=== PATIENT | male | born 1955 | race Caucasian/White ===

== ENCOUNTER 2017-07-26 08:39 | Outpatient (CLI) | payer OTHER ==
--- NOTE | 2017-07-26 10:58 | MRI ---
MRI LUMBAR SPINE WITH AND WITHOUT CONTRAST: Technique: Multiplanar, multisequential imaging of the lumbar spine obtained. Post contrast images ob tained after administration of 20 cc of MultiHance IV. History: Lumbar radiculopathy. Comparison: MRI lumbar spine 09-02-10. FINDINGS: Lumbar vertebrae maintain height and alignment. Degenerative disc changes are seen at all levels. Deg enerative disc and endplate changes are most pronounced at L2-3 and L3-4. Loss of disc height at both of these levels. Similar findings were noted on the prior study. T12-L1: No disc bulge or protrusion. L1-2: Mild disc bulge. Mild posterior facet hypertrophy. Mild central canal stenosis. L2-3: Mild disc bulge. Mild facet arthrosis. Mild central canal stenosis. Asymmetric disc bulge later ally to the left may contact the lateral left L2 nerve root. L3-4: There is a broad based disc protrusion which has progressed when compared to the prior exam of 09-02-10. This flattens the thecal sac and is associated with posterior hypertrophic change. There is e vidence of posterior laminectomy at this level. Facet hypertrophy is prominent. Mild to moderate cent ral canal stenosis. There is bilateral foraminal encroachment due to the broad based disc. L4-5: Minimal disc bulge. Mild facet arthrosis and hypertrophy. Mild central canal stenosis. Asymmetr ic disc bulge/osteophyte projects to the left laterally. L5-S1: Small central disc protrusion and dense anterior thecal sac. Mild facet arthrosis. No signific ant central canal stenosis. IMPRESSION: 1. Broad based disc bulge/protrusion at L3-4. Posterior laminectomy changes. Facet hypertrophy. Findi ngs at this level result in mild to moderate central canal stenosis and bilateral foraminal encroachm ent. POS: [facility]
== END 2017-07-26 08:40 | disposition home or self-care (01) ==
LOC: TBSIIMAG 08:39
PROVIDERS: ATTEND Neurological Surgery
DX: M51.16 Intervertebral disc disorders with radiculopathy, lumbar region (principal)
CPT/HCPCS: 72158

== ENCOUNTER 2019-11-22 14:44 | Observation (INO) | payer OTHER, SELFPAY ==
[2019-11-22 17:16] VITALS: BMI 37.2
[2019-11-22] MEDS ORDERED: TRULICITY SC SCH (17:30)
[2019-11-22] MEDS ORDERED: HumaLOG 300 UNITS/3 ML VIAL SC PRN ×2 (18:37)
[2019-11-22] MEDS ORDERED: Dextrose 5% in Water 1,000 ML IV PRN (18:37)
[2019-11-22] MEDS ORDERED: Dextrose 50% Abboject 50 ML SYRINGE IVP PRN (18:37)
[2019-11-22] MEDS: Lisinopril 20 MG TAB PO SCH (20:48)
[2019-11-23] MEDS ORDERED: Levothyroxine 175 MCG TAB PO SCH (06:00)
[2019-11-23] MEDS: Lisinopril 20 MG TAB PO SCH (07:46)
[2019-11-23 08:12] VITALS: BP 148/65; TEMP 98.3
[2019-11-23] MEDS ORDERED: Ezetimibe 10 MG TAB PO SCH (09:00)
[2019-11-23] MEDS ORDERED: Tamsulosin HCl 0.4 MG CAP PO SCH (09:00)
[2019-11-23] MEDS ORDERED: Amlodipine 10 MG TAB PO SCH (09:00)
[2019-11-23] MEDS ORDERED: Insulin Glargine 68 UNITS in Pre-Filled Syringe 1 EACH SC SCH (09:00)
[2019-11-23] MEDS ORDERED: Potassium Chloride 10 MEQ TAB PO SCH (09:00)
[2019-11-23] MEDS ORDERED: Furosemide 40 MG TAB PO SCH (09:00)
[2019-11-23] MEDS ORDERED: Aspirin 81 mg Enteric Coated Tablet PO SCH (09:00)
[2019-11-23] MEDS ORDERED: Lisinopril 10 MG TAB PO SCH (09:00)
[2019-11-23] MEDS ORDERED: Cyanocobalamin (Vitamin B-12) 1,000 MCG TAB PO SCH (09:00)
--- NOTE | 2019-11-25 10:51 | HP ---
REASON FOR ADMISSION: Severe coronary artery disease found on cardiac catheterization. HISTORY OF PRESENT ILLNESS: Mr. Andrea is a very pleasant 64-year-old gentleman with hypertension and diabetes. The patient was found to have exertional angina as an outpatient. Stress test revealed a yxckvlmj-kc-uvxrn fixed defect of inferior wall with iza-infarction ischemia. He continued to have chest pain despite medicines and underwent cardiac catheterization today showing severe 3-vessel coronary artery disease. MEDICATIONS: At home; 1. Enalapril 20 mg a day. 2. Potassium 10 mEq a day. 3. Aspirin 81 mg a day. 4. Zetia 10 mg a day. 5. Trulicity. 6. Tamsulosin. 7. Amlodipine. PAST MEDICAL HISTORY: 1. Hyperlipidemia. 2. Statin intolerance. 3. Sleep apnea. PAST SURGICAL HISTORY: Carpal tunnel surgery. FAMILY HISTORY: Mother with lung cancer. SOCIAL HISTORY: Nonsmoker. ALLERGIES: TO STATINS OR INTOLERANCE. REVIEW OF SYSTEMS: CONSTITUTIONAL: No significant weight gain or loss. VISION: No changes. HEARING: No changes. PULMONARY: No cough or wheezing. GASTROINTESTINAL: No nausea, vomiting, or diarrhea. SKIN: No rashes. NEUROLOGIC: No unilateral weakness or numbness. PSYCHIATRIC: No unusual depression or anxiety. PHYSICAL EXAMINATION: VITAL SIGNS: Blood pressure is 138/78, pulse 70 that was at office. The blood pressure currently is 130 systolic. HEENT: Sclerae nonicteric. Mouth, mucous membranes moist. NECK: Supple. No lymphadenopathy. LUNGS: Clear. CARDIAC: Normal S1, normal S2. He has a 3/6 holosystolic murmur at the left lower sternal border. He has known history of VSD. ABDOMEN: Obese, nontender. EXTREMITIES: Warm and dry. No clubbing or cyanosis. No edema. PERTINENT LABORATORY DATA: Cardiac catheterization revealed severe three vessel coronary artery disease. ASSESSMENT: 1. Severe 3-vessel coronary artery disease, 90% LAD, 90% circumflex, 95% to 99% right coronary lesion. 2. Bifascicular block on EKG. 3. Hypertension. 4. Ventricular septal defect noted since infancy. PLAN: In view of severe coronary artery disease, we will bring him to [facility] for observation and a consultation with Dr. Maldonado. Job ID: [id number]
--- NOTE | 2019-11-25 12:50 | DIS ---
DATE OF ADMISSION: 11/22/2019 DATE OF DISCHARGE: 11/23/2019 This is an observation discharge summary. Mr. Andrea underwent outpatient cardiac catheterization and was found to have three-vessel coronary artery disease with mild left main stenosis. In view of the severity of the disease, it was advised that he be kept overnight for observation. He did well overnight, had no chest pain or pressure. He was released home the following morning on 11/23/2019. The patient was brought in later for open heart surgery, which was done successfully. The medications at the time of discharge were identical to those on admission. Job ID: [id number]
== END 2019-11-23 10:22 | disposition home or self-care (01) ==
LOC: 2SW 16:48
PROVIDERS: ADMIT Internal Medicine Cardiovascular Disease; ATTEND Internal Medicine Cardiovascular Disease
DX: I25.118 Atherosclerotic heart disease of native coronary artery with other forms of angina pectoris (principal); I45.2 Bifascicular block; I10 Essential (primary) hypertension; E11.9 Type 2 diabetes mellitus without complications; E78.5 Hyperlipidemia, unspecified; G47.30 Sleep apnea, unspecified; Z79.82 Long term (current) use of aspirin; Z79.84 Long term (current) use of oral hypoglycemic drugs; Z79.899 Other long term (current) drug therapy; Z88.0 Allergy status to penicillin; Z88.1 Allergy status to other antibiotic agents; Z88.8 Allergy status to other drugs, medicaments and biological substances
CPT/HCPCS: 36416; G0378; J1815

== ENCOUNTER 2019-11-26 05:52 | Inpatient (IN) | payer MEDICARE ==
--- NOTE | 2019-11-25 15:50 | HP ---
HISTORY OF PRESENT ILLNESS: This is a 64-year-old gentleman referred by Dr. Amrik Renteria and Dr. Jaz Carbajal for three-vessel coronary artery disease. The patient was having exertional angina with a stress test revealing a fixed inferior defect with iza-infarction ischemia and no resting angina. He underwent a cardiac catheterization showing severe three-vessel coronary artery disease including 90% stenosis in the major vessels. His risk factors include obesity, diabetes, and hyperlipidemia. PAST SURGICAL HISTORY: Include carpal tunnel, tonsillectomy, and partial nephrectomy for an oncocytoma. ALLERGIES: STATINS AND GENTAMICIN. MEDICATIONS: Include enalapril 20, FiberCon 625, potassium 99 mg one in the morning and two in the evening, levothyroxine 175 a day, aspirin 81 a day, Tresiba FlexTouch, Zetia 10, Trulicity 1.5, Flomax 0.4, amlodipine 10. PHYSICAL EXAMINATION: GENERAL: Alert, cooperative gentleman. VITAL SIGNS: Weight 253 pounds, height 68 inches. NECK: No carotid bruits. LUNGS: Clear to auscultation. CARDIAC: Regular rate and rhythm with soft systolic murmur at the left lower sternal border. ABDOMEN: Obese and nontender. EXTREMITIES: Palpable pedal pulses bilaterally with no edema and normal Akash's test in the left nondominant arm. Echo showed an EF of 55% to 60% with normal aortic valve, trace mitral regurgitation, xogzldrl-lb-rbibfp left atrial enlargement, and moderate concentric left ventricular hypertrophy. Cardiac catheterization showed 20% left main, 90% LAD, 90% OM, and 80% to 95% distal right coronary stenosis. Potential targets include the LAD, obtuse marginal, and PDA. PLAN: Plan this tomorrow and informed consent has been obtained. Job ID: [id number]
[2019-11-26] MEDS ORDERED: Levofloxacin 500 mg/D5W 100 ml Premix Bag ONE (06:17)
[2019-11-26] MEDS ORDERED: Clindamycin/D5W 900 mg/50 ml Premix Bag ONE (06:17)
[2019-11-26] MEDS ORDERED: Albumin 5% 500 ML ONE (06:23)
[2019-11-26] MEDS ORDERED: Norepinephrine 4 MG/4 ML VIAL ONE (06:35)
[2019-11-26] MEDS ORDERED: Nitroglycerin 50 MG/250 ML BOT 250 ML ONE (06:35)
[2019-11-26] MEDS ORDERED: Fentanyl 100 MCG/2 ML VIAL ONE (06:36)
[2019-11-26] MEDS ORDERED: Midazolam HCl 2 mg/2 ml Vial ONE (06:36)
[2019-11-26 06:44] LABS: #Eosinphils 0.2 thou/uL (0.0-0.7); #Lymphocytes 1.8 thou/uL (1.20-3.40); #Monocytes 0.5 thou/uL (0.11-0.59); #Neutrophils 3.3 thou/uL (1.40-6.50); %Basophils 0.4 % (0.0-1.0); %Lymphocytes 30.6 % (21.0-51.0); %Monocytes 8.7 % (0.0-10.0); %Neutrophils 57.3 % (42.0-75.0); Hemoglobin 13.1 g/dL (14.0-18.0); Mean Corpuscular HGB CONC 35.2 g/dL (32.0-36.0); Mean Corpuscular Hemoglobin 30.2 pg (27.0-31.0); Mean Corpuscular Volume 85.8 fL (78.0-98.0); Platelet Count 197 thou/uL (130-400); RBC Distribution Width 13.1 % (11.5-14.5); Red Blood Cell (RBC) Count 4.34 mill/uL (4.70-6.10); White Blood Cell (WBC) Count 5.8 thou/uL (4.8-10.8)
[2019-11-26] MEDS ORDERED: Heparin 10,000 UNITS/1 ML VIAL 30,000 UNITS in Sodium Chloride 0.9% 1,000 ML FS SCH (06:45)
[2019-11-26 06:55] LABS: Anion Gap 11 mmol/L (10-20); BUN (Urea Nitrogen) 16 mg/dL (8.4-25.7); Calc. Creatinine Clearance 117 mL/min (70-130); Calcium 8.9 mg/dL (7.8-10.44); Carbon Dioxide 27 mmol/L (23-31); Chloride 106 mmol/L (98-107); Estimated GFR-MDRD 75; Glucose 159 mg/dL (80-115); Potassium 3.7 mmol/L (3.5-5.1); Sodium 140 mmol/L (136-145)
[2019-11-26] MEDS ORDERED: Insulin Regular 300 UNITS/3 ML VIAL ONE (08:25)
[2019-11-26] MEDS ORDERED: PHENYLEPHRINE-NS 100 MCG/ML 10 ML SYRINGE ONE ×2 (10:05→11:52)
[2019-11-26] MEDS ORDERED: Lidocaine 1% PF 5 ML VIAL ONE (10:19)
[2019-11-26] MEDS ORDERED: Thrombin 5000 UNITS/5 ML VIAL ONE (10:19)
[2019-11-26] MEDS ORDERED: Aminocaproic Acid 5 GM/20 ML VIAL ONE (10:19)
[2019-11-26] MEDS ORDERED: PROPOFOL 200 MG/20 ML VIAL ONE (10:19)
[2019-11-26] MEDS ORDERED: Heparin 30,000 units/30 ml VIAL ONE (10:19)
[2019-11-26] MEDS ORDERED: Lidocaine 2% PF 5 ML VIAL ONE (10:19)
[2019-11-26] MEDS ORDERED: Sodium Bicarb 50 MEQ/50 ML Abboject 8.4% SYRINGE ONE (10:19)
[2019-11-26] MEDS ORDERED: Magnesium Sulfate 1 GM/2 ML VIAL ONE (10:19)
[2019-11-26] MEDS ORDERED: Potassium Chloride 60 MEQ/30 ML VIAL ONE (10:19)
[2019-11-26] MEDS ORDERED: Succinylcholine Chloride 20 MG/ML 10 ml SYRINGE FS ONE (10:19)
[2019-11-26] MEDS ORDERED: Cardioplegic Soln 1,000 ML BAG ONE (10:19)
[2019-11-26] MEDS ORDERED: Calcium Chloride 1 GM/10 ML Abboject SYRINGE ONE (10:19)
[2019-11-26] MEDS ORDERED: Vecuronium 10 MG VIAL ONE ×2 (10:19→11:38)
[2019-11-26] MEDS ORDERED: Rocuronium Bromide 10 MG/ML (10ML VIAL) ONE (10:19)
[2019-11-26] MEDS ORDERED: Protamine Sulfate 250 MG/25 ML VIAL ONE (10:19)
[2019-11-26] MEDS ORDERED: Papaverine 60 MG/2 ML VIAL ONE (10:19)
[2019-11-26] MEDS ORDERED: Heparin 5,000 UNITS/ML VIAL ONE (10:19)
[2019-11-26] MEDS ORDERED: Protamine Sulfate 50 MG/5 ML VIAL ONE (11:35)
[2019-11-26] MEDS ORDERED: Midazolam HCl 5 mg/5 ml Vial ONE (11:52)
[2019-11-26] MEDS ORDERED: Bisacodyl 5 MG TAB PO PRN (12:11)
[2019-11-26] MEDS ORDERED: HYDROcodone/Acetaminophen 5/325 mg Tablet PO PRN ×2 (12:11)
[2019-11-26] MEDS ORDERED: Mag-Al 1200 mg/1200 mg/30 ML UDCUP PO PRN (12:11)
[2019-11-26] MEDS ORDERED: niCARdipine 25 MG in Sodium Chloride 0.9% 250 ML 250 ML IVPB PRN (12:11)
[2019-11-26] MEDS ORDERED: Morphine 2 MG/ML SYRINGE SLOW IVP PRN (12:11)
[2019-11-26] MEDS ORDERED: Acetaminophen 325 MG TAB PO PRN (12:11)
[2019-11-26] MEDS ORDERED: Promethazine HCl 25 MG/ML VIAL IM PRN (12:11)
[2019-11-26] MEDS ORDERED: Nitroglycerin 50 MG/250 ML BOT 250 ML IVPB PRN (12:11)
[2019-11-26] MEDS ORDERED: hydrALAZINE 20 MG/ML VIAL SLOW IVP PRN (12:11)
[2019-11-26] MEDS ORDERED: Guaifenesin DM 100-10/5 ML UDCUP PO PRN (12:11)
[2019-11-26] MEDS ORDERED: Phenylephrine 10 MG/NS 250 ML 250 ML IVPB PRN (12:11)
[2019-11-26] MEDS ORDERED: Hetastarch 6% 500 ML 500 ML IVPB PRN (12:11)
[2019-11-26] MEDS ORDERED: Ondansetron PF 4 MG/2 ML Vial IVP PRN (12:11)
[2019-11-26] MEDS ORDERED: Post-Op Insulin Drip Protocol IVPB ONE (12:11)
[2019-11-26] MEDS ORDERED: DOPamine 400 MG/D5W 250 ML 250 ML IVPB PRN (12:11)
[2019-11-26] MEDS ORDERED: Bisacodyl 10 MG SUPP PR PRN (12:11)
[2019-11-26] MEDS ORDERED: Fentanyl 100 MCG/2 ML VIAL SLOW IVP PRN (12:11)
[2019-11-26] MEDS ORDERED: Magnesium 2 GM/50 ML 2 GM in Premix Bag 1 BAG IVPB SCH (12:11)
[2019-11-26] MEDS ORDERED: Potassium Chloride 20 MEQ/100 ML PREMIX BAG IVPB PRN (12:11)
[2019-11-26] MEDS ORDERED: Dextrose 50% Abboject 50 ML SYRINGE SLOW IVP PRN (12:38)
[2019-11-26] MEDS ORDERED: Dextrose 5% in Water 1,000 ML IV PRN (12:38)
[2019-11-26] MEDS ORDERED: HUMULIN R 100 UNITS in Sodium Chloride 0.9% 100 ML IVPB SCH (12:38)
[2019-11-26] MEDS ORDERED: Insulin Regular 300 UNITS/3 ML VIAL SC PRN (12:38)
[2019-11-26 12:43] LABS: Actual Bicarbonate (HCO3a) 23.6 mEq/L (22-28); Base Excess (BEa) -1.7 mEq/L (-2.0 to +3.0); CO2 Tension 41.9 mmHg (35.0-45.0); Calcium, Ionized 1.12 mmol/L (1.12-1.30); Carboxyhemoglobin (COHb) 0.6 gm% (0.0-3.0); Hemoglobin (Hb) 11.5 g/dL (14.0-18.0); O2 Tension (PaO2) 87.1 mmHg (> 80.0); Potassium - ABG Lab 4.06 mmol/L (3.70-5.30); pH, Arterial 7.37 (7.35-7.45)
[2019-11-26 12:45] LABS: ALV-art Gradient 217.025 (0-20); Puncture Site LINE
--- NOTE | 2019-11-26 12:53 | RAD ---
CHEST 1 VIEW: HISTORY: Post open heart surgery. COMPARISON: Radiograph of 03/25/2012. FINDINGS: The patient is intubated with endotracheal tube tip above the shelia 3 cm. Subclavian central venous catheter tip sits at the inferior SVC. Heart size is enlarged. IMPRESSION: Expected postoperative findings without complication. POS: [facility]
[2019-11-26 12:54] VITALS: BMI 38.7
[2019-11-26 12:54] LABS: #Eosinphils 0.1 thou/uL (0.0-0.7); #Lymphocytes 1.3 thou/uL (1.20-3.40); #Monocytes 1.3 thou/uL (0.11-0.59); #Neutrophils 8.7 thou/uL (1.40-6.50); %Eosinophils 0.8 % (0.0-10.0); %Lymphocytes 11.6 % (21.0-51.0); %Monocytes 11.5 % (0.0-10.0); %Neutrophils 76.1 % (42.0-75.0); Hemoglobin 11.6 g/dL (14.0-18.0); Mean Corpuscular Hemoglobin 30.3 pg (27.0-31.0); Mean Corpuscular Volume 86.6 fL (78.0-98.0); Platelet Count 129 thou/uL (130-400); RBC Distribution Width 13.2 % (11.5-14.5); Red Blood Cell (RBC) Count 3.82 mill/uL (4.70-6.10); White Blood Cell (WBC) Count 11.4 thou/uL (4.8-10.8)
[2019-11-26 13:04] LABS: INR-International Normal Ratio 1.3; Prothrombin Time 16.5 SEC (12.0-14.7)
--- NOTE | 2019-11-26 13:11 | OP ---
DATE OF PROCEDURE: 11/26/2019 PREOPERATIVE DIAGNOSIS: Coronary artery disease. POSTOPERATIVE DIAGNOSES: Coronary artery disease with zwdzjxxj-kl-nvadge left ventricular hypertrophy and cardiomegaly. PROCEDURE PERFORMED: Coronary bypass graft x4, left internal mammary artery to the left anterior descending, which was 2.5 mm and saphenous vein good quality to a 1.5 mm PDA that was diseased proximally. Saphenous vein to an intramyocardial 1.25 mm thin-walled OM, which was not a redo target and the ramus was 1.5 mm and a radial artery was utilized here. MEDICAL TRANSCRIPTION EDITOR: Van. TRANSFUSION: None. DESCRIPTION OF PROCEDURE: After adequate anesthesia had been obtained, the patient was prepped and draped. Dr. Araujo did the radial artery harvest while I performed an endovascular vein harvest of the left greater saphenous vein. Dr. Araujo then completed tying branches on this while I performed a median sternotomy. Left pleura was entered while harvesting the left internal mammary artery and after heparinization, the mammary was divided distally and treated with papaverine and initially passed posterior to the thymus gland. After placing the sternotomy retractor, the patient had so much thymic fat that I could not visualize the upper mediastinum in aortic area and for this reason, the thymus was removed. Thus, leaving the CHAIM lying medial to the lung. Aorta and right atrium were cannulated. Cardiopulmonary bypass begun. Aorta was cross-clamped and after a liter of cold blood cardioplegia was given, the right coronary artery anastomosis was completed. The distal right coronary artery was thought to be the target, however, was heavily calcified as was the proximal PDA, so the PDA was done slightly more distally. Following completion of this, the OM could only be seen very distally on the heart and dissection was then began proximally and a segment was found intramyocardial to which an end-to-side anastomosis to the vein was carried out. The ramus and LAD grafts were then completed with radial and CHAIM respectively. The cross-clamp was removed and the partial occluding clamp placed and 2 vein anastomosis performed on the aortic root and marked with rings and about 1 cm from the origin of the aorta, the OM vein graft and radial were placed. The patient was then weaned from cardiopulmonary bypass. Cannulas were removed and both cannulation sites were secured with an additional Prolene. As mentioned, the patient had rather severe LVH and would make access to anything other than the LAD difficult in the future. Following this, mediastinal and left pleural drains were placed. Sternum was reapproximated with a combination of #7 interrupted wires and 3 zip ties. Subcutaneous tissue and skin were closed in layers. Job ID: [id number]
[2019-11-26 13:21] LABS: PTT 33.3 SEC (22.9-36.1)
[2019-11-26 13:37] LABS: Anion Gap 11 mmol/L (10-20); BUN (Urea Nitrogen) 17 mg/dL (8.4-25.7); Calc. Creatinine Clearance 135 mL/min (70-130); Calcium 7.4 mg/dL (7.8-10.44); Carbon Dioxide 22 mmol/L (23-31); Chloride 112 mmol/L (98-107); Estimated GFR-MDRD 84; Glucose 102 mg/dL (80-115); Sodium 141 mmol/L (136-145)
[2019-11-26] MEDS: Clindamycin/D5W 900 MG in Premix Bag 1 BAG IVPB SCH ×2 (17:07→23:08)
[2019-11-26] MEDS ORDERED: Sodium Chloride 0.9% 1,000 ML IV SCH (18:15)
[2019-11-26 18:19] LABS: Hemoglobin 12.3 g/dL (14.0-18.0)
[2019-11-26 18:32] LABS: Potassium 4.6 mmol/L (3.5-5.1)
[2019-11-26 19:49] LABS: Actual Bicarbonate (HCO3a) 19.5 mEq/L (22-28); Base Excess (BEa) -5.1 mEq/L (-2.0 to +3.0); CO2 Tension 35.1 mmHg (35.0-45.0); Calcium, Ionized 1.12 mmol/L (1.12-1.30); Carboxyhemoglobin (COHb) 1.1 gm% (0.0-3.0); Hemoglobin (Hb) 12.4 g/dL (14.0-18.0); O2 Tension (PaO2) 83.5 mmHg (> 80.0); Potassium - ABG Lab 4.18 mmol/L (3.70-5.30); pH, Arterial 7.36 (7.35-7.45)
[2019-11-26] MEDS: Fentanyl 100 MCG/2 ML VIAL SLOW IVP PRN ×2 (21:03→23:09)
[2019-11-26] MEDS: Famotidine/PF 20 mg/2ml Vial SLOW IVP SCH (21:04)
[2019-11-27 04:49] LABS: #Lymphocytes 1.3 thou/uL (1.20-3.40); #Monocytes 1.2 thou/uL (0.11-0.59); #Neutrophils 7.9 thou/uL (1.40-6.50); %Basophils 0.2 % (0.0-1.0); %Eosinophils 0.2 % (0.0-10.0); %Lymphocytes 12.2 % (21.0-51.0); %Monocytes 11.2 % (0.0-10.0); %Neutrophils 76.2 % (42.0-75.0); Hemoglobin 12.1 g/dL (14.0-18.0); Mean Corpuscular Hemoglobin 29.9 pg (27.0-31.0); Mean Corpuscular Volume 87.9 fL (78.0-98.0); Mean Platelet Volume 7.5 fL (7.4-10.4); Platelet Count 168 thou/uL (130-400); RBC Distribution Width 13.4 % (11.5-14.5); Red Blood Cell (RBC) Count 4.04 mill/uL (4.70-6.10); White Blood Cell (WBC) Count 10.4 thou/uL (4.8-10.8)
[2019-11-27 05:13] LABS: Anion Gap 9 mmol/L (10-20); BUN (Urea Nitrogen) 18 mg/dL (8.4-25.7); Calc. Creatinine Clearance 137 mL/min (70-130); Calcium 7.8 mg/dL (7.8-10.44); Carbon Dioxide 25 mmol/L (23-31); Chloride 111 mmol/L (98-107); Estimated GFR-MDRD 86; Glucose 129 mg/dL (80-115); Potassium 4.1 mmol/L (3.5-5.1); Sodium 141 mmol/L (136-145)
[2019-11-27] MEDS: Clindamycin/D5W 900 MG in Premix Bag 1 BAG IVPB SCH (05:32)
--- NOTE | 2019-11-27 08:05 | RAD ---
CHEST 1 VIEW: INDICATION: History of postop open heart surgery. COMPARISON: Prior exam dated 11/26/2019. FINDINGS: Since the comparison examination, the patient has been extubated. There is a right subclavian centra l venous catheter unchanged in position. Mild cardiomegaly and midline sternotomy changes are stable appearing. Mediastinal drain is stable appearing. Small left pleural effusion is stable appearing. No airspace disease or pneumothorax is evident. Postoperative changes involving the lower cervical spine and both shoulders are similar-appearing. IMPRESSION: 1. Interval extubation. 2. Persistent mild cardiomegaly with small left pleural effusion. 3. Stable right subclavian central venous catheter and mediastinal drain. POS: [facility]
[2019-11-27] MEDS: Famotidine/PF 20 mg/2ml Vial SLOW IVP SCH (08:08)
[2019-11-27] MEDS ORDERED: FLU VACC TS2019-20(65YR UP)/PF 180 MCG/0.5 ML SYRINGE IM ONE (09:00)
[2019-11-27] MEDS ORDERED: Prevnar 13-Val Conj/PF 0.5 ML SYRINGE IM ONE (09:00)
[2019-11-27] MEDS ORDERED: Aspirin 325 MG TAB PO SCH (09:00)
[2019-11-27] MEDS ORDERED: Bisacodyl 5 MG TAB PO PRN (09:50)
[2019-11-27] MEDS ORDERED: Nitroglycerin 0.4 MG TAB (25 Tab Bottle) SL PRN (09:50)
[2019-11-27] MEDS ORDERED: HYDROcodone/Acetaminophen 5/325 mg Tablet PO PRN (09:50)
[2019-11-27] MEDS ORDERED: Zolpidem Tartrate 5 MG TAB PO PRN (09:50)
[2019-11-27] MEDS ORDERED: Mag-Al 1200 mg/1200 mg/30 ML UDCUP PO PRN (09:50)
[2019-11-27] MEDS ORDERED: Bisacodyl 10 MG SUPP PR PRN (09:50)
[2019-11-27] MEDS ORDERED: Ondansetron PF 4 MG/2 ML Vial IVP PRN (09:50)
[2019-11-27] MEDS ORDERED: Mineral Oil ENEMA PR PRN (09:50)
[2019-11-27] MEDS ORDERED: Guaifenesin DM 100-10/5 ML UDCUP PO PRN (09:50)
[2019-11-27] MEDS ORDERED: Fentanyl 100 MCG/2 ML VIAL SLOW IVP PRN ×2 (09:50)
[2019-11-27] MEDS ORDERED: Milk Of Magnesia 30 ML UDCUP PO PRN (09:50)
[2019-11-27] MEDS ORDERED: Dextrose 50% Abboject 50 ML SYRINGE SLOW IVP PRN (10:11)
[2019-11-27] MEDS ORDERED: Dextrose 5% in Water 1,000 ML IV PRN (10:11)
[2019-11-27] MEDS: HYDROcodone/Acetaminophen 5/325 mg Tablet PO PRN ×2 (10:26→14:21)
--- NOTE | 2019-11-27 11:13 | PRG ---
DATE OF SERVICE: 11/27/2019 SUBJECTIVE: Mr. Andrea underwent successful coronary artery bypass surgery yesterday. He is doing very well. OBJECTIVE: VITAL SIGNS: His blood pressure is 133/67. Pulse is in the 80s, it is regular. LUNGS: Clear. CARDIAC: Normal S1, normal S2. ABDOMEN: Obese and nontender. EXTREMITIES: Warm and dry. DIAGNOSTIC STUDIES: EKG shows right bundle-branch block. ASSESSMENT: Status post multivessel bypass surgery done successfully by Dr. Maldonado. The patient had internal mammary to the LAD, saphenous vein graft to the posterior descending artery, saphenous vein graft to obtuse marginal and a ramus with a radial. PLAN: 1. We will add low-dose beta gely. 2. Usual cardiac rehabilitation strategies. The patient is doing very well. Job ID: [id number]
[2019-11-27] MEDS ORDERED: Clindamycin/D5W 900 MG in Premix Bag 1 BAG IVPB SCH (12:00)
[2019-11-27] MEDS ORDERED: Diltiazem HCl 125 MG, Admixture Fee 1 EACH in Sodium Chloride 0.9% 100 ML IVPB SCH (15:00)
[2019-11-27] MEDS: Rosuvastatin 5 MG TAB PO SCH (20:22)
[2019-11-27] MEDS: Famotidine 20 MG TAB PO SCH (20:23)
[2019-11-27] MEDS: Tamsulosin HCl 0.4 MG CAP PO SCH (20:23)
[2019-11-27] MEDS ORDERED: Insulin Glargine 40 UNITS in Pre-Filled Syringe 1 EACH SC SCH (21:00)
[2019-11-28] MEDS: Diltiazem 125 MG in Sodium Chloride 0.9% 100 ML IVPB SCH ×2 (00:01→09:05)
[2019-11-28] MEDS: Levothyroxine 175 MCG TAB PO SCH (05:25)
--- NOTE | 2019-11-28 07:03 | PRG ---
DATE OF SERVICE: 11/28/2019 The patient is now postoperative day #2 from coronary bypass grafting with a good blood pressure in the 115 to 120 range and heart rate in the 70s, although he did have some atrial fibrillation yesterday and is maintaining sinus rhythm today on diltiazem drip. His weight is 262 pounds compared with 255 stated on admission. His chest dressing is clean and dry. His lungs are clear to auscultation, although he does complain of some discomfort with using the incentive spirometer. His abdomen is obese and nontender. Plan today is to begin diuretics and probably just from IV diltiazem to oral beta blockers per Dr. Carbajal. His sugars have been elevated as anticipated and will continue his insulin dosages. Job ID: [id number]
[2019-11-28] MEDS ORDERED: Furosemide 40 MG TAB PO SCH (09:00)
[2019-11-28] MEDS ORDERED: Diltiazem 125 MG in Sodium Chloride 0.9% 100 ML IVPB SCH (09:45)
[2019-11-28] MEDS: Famotidine 20 MG TAB PO SCH ×2 (09:58→20:53)
[2019-11-28] MEDS: Potassium Chloride 10 MEQ TAB PO SCH (09:58)
[2019-11-28] MEDS: Ezetimibe 10 MG TAB PO SCH (09:58)
[2019-11-28] MEDS: Aspirin 325 mg Enteric Coated Tablet PO SCH (09:58)
[2019-11-28] MEDS: Furosemide 40 MG TAB PO SCH ×2 (09:58→15:21)
[2019-11-28] MEDS: Acetaminophen 325 MG TAB PO PRN (09:58)
[2019-11-28] MEDS: Insulin Glargine 40 UNITS in Pre-Filled Syringe 1 EACH SC SCH ×2 (09:59→20:53)
[2019-11-28] MEDS: Polyethylene Glycol 3350 17 GM Packet PO SCH (09:59)
--- NOTE | 2019-11-28 10:22 | PRG ---
DATE OF SERVICE: 11/28/2019 SUBJECTIVE: Mr. Andrea is doing better. Yesterday, he did have some atrial fibrillation and also some atrial flutter. Today, he is in normal sinus rhythm. The patient has chest soreness, but no angina. OBJECTIVE: VITAL SIGNS: His blood pressure 115/56, pulse 80, it is regular. LUNGS: Clear. CARDIAC: Normal S1, normal S2. ABDOMEN: Obese, nontender. EXTREMITIES: Mild edema. PERTINENT LABORATORY DATA: Hemoglobin yesterday was 12.1. MEDICATIONS: The patient is currently on metoprolol succinate, dose increased to 50 mg a day and intravenous Cardizem. PLAN: 1. Reduce intravenous Cardizem. 2. Continue beta-gely. 3. Continue aspirin. 4. Cardiac rehab. Job ID: [id number]
[2019-11-28] MEDS: Insulin Regular 300 UNITS/3 ML VIAL SC PRN (11:21)
[2019-11-28] MEDS: HYDROcodone/Acetaminophen 5/325 mg Tablet PO PRN (19:03)
[2019-11-28] MEDS: Rosuvastatin 5 MG TAB PO SCH (20:54)
[2019-11-28] MEDS: Tamsulosin HCl 0.4 MG CAP PO SCH (20:54)
[2019-11-29] MEDS: Levothyroxine 175 MCG TAB PO SCH (05:14)
[2019-11-29] MEDS: Furosemide 40 MG TAB PO SCH ×2 (08:36→15:33)
[2019-11-29] MEDS: Famotidine 20 MG TAB PO SCH ×2 (08:36→21:50)
[2019-11-29] MEDS: Aspirin 325 mg Enteric Coated Tablet PO SCH (08:37)
[2019-11-29] MEDS: Potassium Chloride 10 MEQ TAB PO SCH (08:37)
[2019-11-29] MEDS: Ezetimibe 10 MG TAB PO SCH (08:37)
[2019-11-29] MEDS ORDERED: Diltiazem 125 MG in Sodium Chloride 0.9% 100 ML IVPB SCH (08:37)
[2019-11-29] MEDS: Insulin Glargine 40 UNITS in Pre-Filled Syringe 1 EACH SC SCH ×2 (08:38→21:50)
[2019-11-29] MEDS: Insulin Regular 300 UNITS/3 ML VIAL SC PRN ×2 (08:38→12:31)
[2019-11-29] MEDS: Polyethylene Glycol 3350 17 GM Packet PO SCH (08:38)
--- NOTE | 2019-11-29 08:55 | PRG ---
DATE OF SERVICE: 11/29/2019 SUBJECTIVE: Mr. Andrea is doing better today. He is still having some atrial arrhythmias intermittently. He is back in sinus rhythm now. OBJECTIVE: VITAL SIGNS: His blood pressure is 146/69, pulse is 80, it is sinus. LUNGS: Clear. CARDIAC: Normal S1, normal S2. ABDOMEN: Obese, nontender. EXTREMITIES: There is only minimal edema. ASSESSMENT: 1. Status post bypass surgery. 2. Diabetes. 3. Atrial arrhythmias, improving. PLAN: 1. Increase beta gely. 2. Reduce diltiazem. 3. Probably home this weekend. Job ID: [id number]
[2019-11-29] MEDS: Acetaminophen 325 MG TAB PO PRN (12:34)
--- NOTE | 2019-11-29 15:56 | PRG ---
DATE OF SERVICE: 11/29/2019 The patient's vital signs; blood pressure has been running in the 130 to 140 range and heart rate is currently 80, in sinus rhythm, although he did have some atrial flutter earlier this morning. His Cardizem drip has been decreased by Dr. Carbajal and his metoprolol has been increased. He had a good bowel movement today and has walked twice without having to stop. His lungs are clear and his chest incision looks good. He still has trace to 1+ pitting edema in his lower legs and most recent weight recorded was 257 compared to 250 on admission. He remains on the oral Lasix twice a day. Plan is to discharge this weekend if his arrhythmias remained stable and I will restart his enalapril at a low dose in the morning. Job ID: [id number]
[2019-11-29] MEDS: Tamsulosin HCl 0.4 MG CAP PO SCH (21:50)
[2019-11-29] MEDS: Rosuvastatin 5 MG TAB PO SCH (21:50)
[2019-11-30] MEDS: Levothyroxine 175 MCG TAB PO SCH (05:19)
[2019-11-30] MEDS ORDERED: Lisinopril 5 MG TAB PO SCH ×2 (09:00)
[2019-11-30] MEDS: Potassium Chloride 10 MEQ TAB PO SCH (09:27)
[2019-11-30] MEDS: Lisinopril 10 MG TAB PO SCH (09:28)
[2019-11-30] MEDS: Aspirin 325 mg Enteric Coated Tablet PO SCH (09:28)
[2019-11-30] MEDS: Furosemide 40 MG TAB PO SCH ×2 (09:28→14:44)
[2019-11-30] MEDS: Ezetimibe 10 MG TAB PO SCH (09:28)
[2019-11-30] MEDS: Famotidine 20 MG TAB PO SCH ×2 (09:28→20:52)
[2019-11-30] MEDS: Polyethylene Glycol 3350 17 GM Packet PO SCH (09:29)
[2019-11-30] MEDS: Insulin Glargine 40 UNITS in Pre-Filled Syringe 1 EACH SC SCH ×2 (09:29→20:52)
--- NOTE | 2019-11-30 09:51 | PRG ---
DATE OF SERVICE: 11/30/2019 SUBJECTIVE: Mr. Andrea is feeling well. No complaints. He is still on IV Cardizem. OBJECTIVE: VITAL SIGNS: Blood pressure 150/70, pulse 80, sinus. LUNGS: Clear. CARDIAC: Normal S1, normal S2. ABDOMEN: Soft, nontender. ASSESSMENT: 1. Status post bypass surgery. 2. Atrial arrhythmias, improved. 3. Hypertension. PLAN: 1. He is on metoprolol 100 mg a day. 2. Stop intravenous Cardizem. 3. He is on lisinopril 10 mg a day. 4. Keep one more day. If he does not have any arrhythmias tonight, home tomorrow morning. Job ID: [id number]
[2019-11-30] MEDS: Insulin Regular 300 UNITS/3 ML VIAL SC PRN (11:58)
[2019-11-30] MEDS: Rosuvastatin 5 MG TAB PO SCH (20:52)
[2019-11-30] MEDS: Tamsulosin HCl 0.4 MG CAP PO SCH (20:52)
[2019-12-01] MEDS: Levothyroxine 175 MCG TAB PO SCH (05:45)
[2019-12-01 07:23] VITALS: TEMP 98.1
[2019-12-01] MEDS: Ezetimibe 10 MG TAB PO SCH (09:11)
[2019-12-01] MEDS: Potassium Chloride 10 MEQ TAB PO SCH (09:11)
[2019-12-01] MEDS: Aspirin 325 mg Enteric Coated Tablet PO SCH (09:11)
[2019-12-01] MEDS: Insulin Glargine 40 UNITS in Pre-Filled Syringe 1 EACH SC SCH (09:12)
[2019-12-01] MEDS: Lisinopril 10 MG TAB PO SCH (09:12)
[2019-12-01] MEDS: Famotidine 20 MG TAB PO SCH (09:12)
[2019-12-01] MEDS: Furosemide 40 MG TAB PO SCH (09:12)
[2019-12-01] MEDS: Polyethylene Glycol 3350 17 GM Packet PO SCH (09:13)
--- NOTE | 2019-12-01 10:08 | PRG ---
DATE OF SERVICE: 12/01/2019 SUBJECTIVE: Mr. Andrea is feeling well. He did not have any more atrial arrhythmias. No complaints. He is sitting up in the chair. OBJECTIVE: VITAL SIGNS: Blood pressure 144/70, pulse 80. LUNGS: Clear. CARDIAC: Normal S1. Normal S2. ABDOMEN: Soft and nontender. ASSESSMENT: 1. Status post bypass surgery. 2. Hypertension. 3. Hypercholesterolemia. 4. Statin intolerance. PLAN: 1. He is going to go home on Zetia 10 mg a day. 2. Crestor, he will try to take 5 mg three days a week. 3. As an outpatient, we will start him on Repatha. 4. He is on metoprolol succinate 100 mg a day. 5. Back on lisinopril 20 mg twice a day. 6. Resume amlodipine as an outpatient if the blood pressure needs it. Job ID: [id number]
[2019-12-01 11:28] VITALS: BP 179/80
[2019-12-01] MEDS ORDERED: Lisinopril 20 MG TAB PO SCH (21:00)
--- NOTE | 2019-12-02 09:10 | DIS ---
DATE OF ADMISSION: 11/26/2019 DATE OF DISCHARGE: 12/01/2019 HOSPITAL COURSE: The patient underwent cardiac catheterization by Dr. Carbajal for symptoms of the exertional angina . His catheterization showed multivessel disease and he underwent coronary artery bypass grafting on 11/25 to the LAD, PDA, OM, and ramus. The ramus was bypassed with the radial artery. The patient had rather diffuse coronary artery disease intraoperatively. His postoperative course was significant only for transient atrial fibrillation and flutter, which resolved with a Cardizem drip. He was discharged with a weight of 251 pounds comparing favorably with admission weight. He was ambulating the halls without difficulty and his incisions were doing well. His hemoglobin postop was 12.1. His sugars were variable and he is to resume his diabetic medicines at home including his insulin, which he takes about 100 units a day. In addition, he is going to be started on Crestor 5 mg daily and if he can tolerate this, it will be continued and if not maybe twice a week with continuation of his Zetia. He will also be on Toprol-XL 100 a day, enalapril 10 b.i.d., Flomax 0.4 a day, potassium supplement, levothyroxine 175 mcg daily, Trulicity weekly, Lasix 40 a day, which is a chronic medication, and aspirin 81 a day. Discharge and followup instructions have been given. Job ID: [id number]
== END 2019-12-01 12:10 | disposition home or self-care (01) | DRG 236 ==
LOC: SURG A 05:52 → CCU 12:01 → EDSTATUS 12:42 → 2NO 11-27 12:42
PROVIDERS: ADMIT Thoracic Surgery (Cardiothoracic Vascular Surgery); ATTEND Thoracic Surgery (Cardiothoracic Vascular Surgery)
PROC: 02100Z9 Bypass Coronary Artery, One Artery from Left Internal Mammary, Open Approach (ICD-10-PCS; principal; 2019-11-26)
PROC: 021109W Bypass Coronary Artery, Two Arteries from Aorta with Autologous Venous Tissue, Open Approach (ICD-10-PCS; 2019-11-26)
PROC: 02100AW Bypass Coronary Artery, One Artery from Aorta with Autologous Arterial Tissue, Open Approach (ICD-10-PCS; 2019-11-26)
PROC: 03BC3ZZ Excision of Left Radial Artery, Percutaneous Approach (ICD-10-PCS; 2019-11-26)
PROC: 06BN4ZZ Excision of Left Femoral Vein, Percutaneous Endoscopic Approach (ICD-10-PCS; 2019-11-26)
PROC: 5A1221Z Performance of Cardiac Output, Continuous (ICD-10-PCS; 2019-11-26)
PROC: 07TM0ZZ Resection of Thymus, Open Approach (ICD-10-PCS; 2019-11-26)
DX: I25.10 Atherosclerotic heart disease of native coronary artery without angina pectoris (principal); I48.92 Unspecified atrial flutter; E78.5 Hyperlipidemia, unspecified; I45.10 Unspecified right bundle-branch block; I10 Essential (primary) hypertension; G47.33 Obstructive sleep apnea (adult) (pediatric); E03.9 Hypothyroidism, unspecified; E11.9 Type 2 diabetes mellitus without complications; I51.7 Cardiomegaly; E78.00 Pure hypercholesterolemia, unspecified; E66.9 Obesity, unspecified; I48.91 Unspecified atrial fibrillation; Z68.36 Body mass index [BMI] 36.0-36.9, adult; Z88.8 Allergy status to other drugs, medicaments and biological substances; Z88.1 Allergy status to other antibiotic agents; Z79.890 Hormone replacement therapy; Z79.82 Long term (current) use of aspirin; Z79.899 Other long term (current) drug therapy; Z88.0 Allergy status to penicillin; Z99.89 Dependence on other enabling machines and devices; Z87.891 Personal history of nicotine dependence
CPT/HCPCS: 36415; 36416; 36430; 71045; 80048; 82805; 85025; 85610; 85730; 86850; 86900; 86901; 93005; 93010; 93798; 94002; 94150; J1642; J1644; J1815; J1956; J2001; J2250; J2440; J2704; J2720; J3010; J3370; J3475; J3480; J3490; P9045; S0017; S0028

== ENCOUNTER 2020-07-08 08:07 | Outpatient (CLI) | payer MEDICARE ==
--- NOTE | 2020-07-08 10:39 | MRI ---
MRI LUMBAR SPINE WITH AND WITHOUT CONTRAST: DATE: 07/08/2020.] HISTORY: A 65-year-old male with lumbar radiculopathy, M54.16. COMPARISON: 07/24/2017. TECHNIQUE: Multiple sequences obtained in axial and sagittal planes, pre and post IV injection of gadolinium-bas ed contrast agent: 20 mL MultiHance. FINDINGS: For the purposes of this report, it will be assumed that there are 5 lumbar-type vertebrae. The vert ebral body heights are maintained. Conus medullaris terminates at L1-2. 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 The findings by individual levels are as follows: T12-L1: No central or neural foraminal stenosis. Mild disk space narrowing. L1-2: Mild disk space narrowing. Broad-based disk protrusion. Mild to moderate ligamentum flavum t hickening and mild bilateral facet DJD. Mild to moderate central spinal canal stenosis. No signific ant neural foraminal stenosis. No interval change. L2-3: Moderate disk space narrowing. Disk bulge. Mild ligamentum flavum thickening and mild bilate ral facet DJD. No high-grade neural foraminal stenosis. Mild to moderate central spinal canal steno sis. No interval change. L3-4: Interval worsening of moderate disk space narrowing. Large disk bulge. Moderate bilateral fa cet DJD. Moderate bilateral neural foraminal stenosis is unchanged. Old midline laminectomy defect again noted. Despite this, there is moderate central spinal canal stenosis, unchanged. Interval wor sening of Modic type I end plate changes. End plate irregularities. Degenerative retrolisthesis of L3 on L4 contributes to the severe central spinal canal stenosis. In addition to enhancing extradura l material circumferentially (postoperative scar tissue), there is apparently also enhancement of cau da equina nerve roots that are being compressed at this level. L4-5: There has been interval development of mild to moderate disk space narrowing. Interval worsen ing of now prominent diffuse disk bulge. Interval worsening of now moderate to severe bilateral neur al foraminal stenosis. Moderate to severe ligamentum flavum thickening, asymmetrically greater on th e left than right. Interval development of severe central spinal canal stenosis, new since the previ ous MRI. Obliteration of CSF signal and crowding of cauda equina. L5-S1: Disk space maintained. Mild bilateral neural foraminal stenosis. No central spinal canal st enosis. Central disk protrusion indents the thecal sac. No central spinal canal stenosis. Mild to moderate bilateral facet DJD. No interval change. IMPRESSION: 1. Interval new development of severe central spinal canal stenosis at L4-5 due to high-grade degene rative disk disease and high-grade posterior element degenerative changes. 2. There is enhancement of the compressed cauda equina nerve roots at the L4-5 level, suggesting inf lammation of those nerve roots due to the extrinsic compression. 3. Interval progression of degenerative disk disease at L3-4, but no interval change in the moderate degree of central spinal canal stenosis at L3-4,(despite old midline laminectomy). 4. Interval worsening of now moderate to severe bilateral neural foraminal stenosis at L4-5. JESSIE Jenkins POS: [facility]
== END 2020-07-08 08:08 | disposition home or self-care (01) ==
LOC: BICMRI 08:07
PROVIDERS: ATTEND Neurological Surgery
DX: M47.26 Other spondylosis with radiculopathy, lumbar region (principal); M48.061 Spinal stenosis, lumbar region without neurogenic claudication; M51.16 Intervertebral disc disorders with radiculopathy, lumbar region
CPT/HCPCS: 72158; 82565

== ENCOUNTER 2020-08-26 06:52 | Outpatient (CLI) | payer MEDICARE ==
[2020-08-26 17:14] LABS: Anion Gap 14 mmol/L (10-20); BUN (Urea Nitrogen) 23 mg/dL (8.4-25.7); Calc. Creatinine Clearance 0 mL/min (70-130); Carbon Dioxide 24 mmol/L (23-31); Chloride 105 mmol/L (98-107); Glucose 193 mg/dL (80-115); Sodium 139 mmol/L (136-145)
[2020-08-27 03:15] LABS: SARS-CoV-2 MS2 Positive; SARS-CoV-2 N Gene Negative; SARS-CoV-2 S Gene Negative; SARS-CoV-2 by NAA Not Detected (NotDetected); SARS-CoV-2 orf1ab Negative
== END 2020-08-26 06:53 | disposition home or self-care (01) ==
LOC: LABBT 06:52
PROVIDERS: ATTEND Neurological Surgery
DX: Z01.818 Encounter for other preprocedural examination (principal); M54.16 Radiculopathy, lumbar region; Z20.828 Contact with and (suspected) exposure to other viral communicable diseases
CPT/HCPCS: 80048; U0003; 87635; 93005; 93010

== ENCOUNTER 2020-08-31 06:26 | Day surgery (SDC) | payer MEDICARE ==
[2020-08-25 11:38] VITALS: BMI 35.4
--- NOTE | 2020-08-30 22:56 | HP ---
HISTORY OF PRESENT ILLNESS: Mr. Andrea is known to us for prior lumbar spine surgery and cervical spine evaluation, returns now with worsening back pain as well as symptoms radiating to buttocks but rarely on the posterior thighs as well as symptoms that are rather convincing for neurogenic claudication. He has an MRI from [facility] that reveals rather profound stenosis at L4-5. He has attempted some activity modification with little relief and has failed other pain management interventions in the past and hopes to discuss possible surgical intervention. PAST MEDICAL HISTORY: Significant for hypercholesterolemia, diabetes, coronary arterial disease, hypertension, and osteoarthritis. PAST SURGICAL HISTORY: Partial nephrectomy, CABG x4, anterior cervical diskectomy and fusion, left knee arthroscopy, left rotator cuff repair, cholecystectomy, and carpal tunnel surgery. CURRENT MEDICATIONS: 1. Aspirin. 2. Zetia. 3. Trulicity. 4. Tamsulosin. 5. Metoprolol. 6. Rosuvastatin. 7. Potassium. 8. . 9. Vitamin B12. 10. Furosemide. 11. Levothyroxine. 12. Enalapril. ALLERGIES: GENTAMICIN, PENICILLIN, AND STATINS. ASSESSMENT: Lumbar spinal stenosis. PLAN: Dr. Xie met with the patient, reviewed imaging, and advocated for lumbar decompression. He explained to the patient the risks, benefits, and alternatives to the procedure. The patient expressed understanding and elected to move forward with surgery as discussed. I do believe the patient is mentally competent and capable of making medical decisions for himself. We will move forward with surgery as planned. Job ID: [id number]
[2020-08-31] MEDS ORDERED: Bupivacaine PF 0.5% 30 ML VIAL ONE (06:45)
[2020-08-31] MEDS ORDERED: Thrombin 5000 UNITS/5 ML VIAL ONE (06:45)
[2020-08-31] MEDS ORDERED: EPINEPHrine 1 MG/ML AMP ONE (06:45)
[2020-08-31] MEDS ORDERED: Levofloxacin 500 mg/D5W 100 ml Premix Bag ONE (07:55)
[2020-08-31] MEDS ORDERED: Clindamycin/D5W 900 mg/50 ml Premix Bag ONE (07:55)
[2020-08-31] MEDS ORDERED: Fentanyl 100 MCG/2 ML VIAL ONE ×2 (08:40→09:45)
--- NOTE | 2020-08-31 10:06 | OP ---
DATE OF PROCEDURE: 08/31/2020 WASTE MANAGEMENT RECYCLING TECHNICIAN: Mick Peña PA-C INDICATION: Pain. DIAGNOSIS: Lumbar stenosis. PROCEDURE PERFORMED: L4-L5 decompression. ANESTHESIA: General. DESCRIPTION OF PROCEDURE: The patient was brought into the operating room and placed under general anesthesia. He was flipped from the supine to prone position on the operating room table. A linear incision was planned over the L4-L5 segment. After prepping and draping and after an appropriate operative pause, the incision was created. The soft tissues were swept away from midline. Self-retaining retractors were placed in the wound for optimal exposure. After confirming the appropriate level with C-arm fluoroscopy, an Adson rongeur was used to remove the spinous process along the inferior aspect of L4 and the superior aspect of L5. A high-speed cutting drill bit as well as 2, 3 and 4 mm Kerrisons were then used to complete the laminectomy. The laminectomy was extended laterally to encompass the medial aspect of the facet joints. After completing the decompression, the wound was irrigated. Hemostasis was maintained throughout. The wound was then closed in anatomic layers and a pressure dressing was applied. There were no known procedural complications. Job ID: [id number]
[2020-08-31] MEDS ORDERED: PROPOFOL 200 MG/20 ML VIAL ONE (10:09)
[2020-08-31] MEDS ORDERED: Ketorolac Tromethamine 30 MG/ML VIAL ONE (10:09)
[2020-08-31] MEDS ORDERED: Dexamethasone 20 MG/5 ML VIAL ONE (10:09)
[2020-08-31] MEDS ORDERED: Lidocaine 1% PF 5 ML VIAL ONE (10:09)
[2020-08-31] MEDS ORDERED: Ondansetron PF 4 MG/2 ML Vial ONE (10:09)
[2020-08-31] MEDS ORDERED: PHENYLEPHRINE-NS 100 MCG/ML 10 ML SYRINGE ONE (10:09)
[2020-08-31] MEDS ORDERED: Glycopyrrolate 0.2 MG/ML 5 ML SYRINGE ONE (10:09)
[2020-08-31] MEDS ORDERED: Rocuronium Bromide 10 MG/ML (10ML VIAL) ONE (10:09)
[2020-08-31] MEDS ORDERED: Tamsulosin HCl 0.4 MG CAP ONE (10:59)
[2020-08-31] MEDS ORDERED: HYDROcodone/Acetaminophen 5/325 mg Tablet ONE (12:19)
[2020-08-31] MEDS ORDERED: Ondansetron ODT 4 MG TAB ONE (12:41)
== END 2020-08-31 15:20 | disposition home or self-care (01) ==
LOC: SDC 06:26
PROVIDERS: ATTEND Neurological Surgery
PROC: 00NY0ZZ Release Lumbar Spinal Cord, Open Approach (ICD-10-PCS; principal; 2020-08-31)
DX: M48.061 Spinal stenosis, lumbar region without neurogenic claudication (principal); M54.16 Radiculopathy, lumbar region; E78.00 Pure hypercholesterolemia, unspecified; E11.9 Type 2 diabetes mellitus without complications; I25.10 Atherosclerotic heart disease of native coronary artery without angina pectoris; I10 Essential (primary) hypertension; M19.90 Unspecified osteoarthritis, unspecified site; Z79.82 Long term (current) use of aspirin; Z79.899 Other long term (current) drug therapy; Z88.0 Allergy status to penicillin; Z88.1 Allergy status to other antibiotic agents; Z88.8 Allergy status to other drugs, medicaments and biological substances
CPT/HCPCS: 36416; 76000; J0171; J1956; J3010; J3490; Q0162; S0020

== ENCOUNTER 2021-08-12 08:53 | Outpatient (CLI) | payer MEDICARE | END 2021-08-12 08:54 | disposition home or self-care (01) | LOC: BICRAD 08:53 | PROVIDERS: ATTEND Neurological Surgery | DX: M54.50 Low back pain, unspecified (principal); M47.816 Spondylosis without myelopathy or radiculopathy, lumbar region | CPT/HCPCS: 72110 ==

== ENCOUNTER 2021-09-15 04:00 | Outpatient (CLI) | payer MEDICARE ==
[2021-09-15] MEDS ORDERED: Magnevist 469MG/ML 20 ML VIAL ONE (12:27)
== END 2021-09-15 23:59 | disposition home or self-care (01) ==
LOC: TBSIIMAG 04:00
PROVIDERS: ATTEND Neurological Surgery
DX: M51.16 Intervertebral disc disorders with radiculopathy, lumbar region (principal); M48.061 Spinal stenosis, lumbar region without neurogenic claudication
CPT/HCPCS: 72158; 82565; A9579

== ENCOUNTER 2021-11-26 10:08 | Outpatient (CLI) | payer MEDICARE ==
[2021-11-26 11:39] LABS: Anion Gap 13 mmol/L (10-20); BUN (Urea Nitrogen) 22 mg/dL (8.4-25.7); Calc. Creatinine Clearance 0 mL/min (70-130); Calcium 9.1 mg/dL (7.8-10.44); Carbon Dioxide 28 mmol/L (23-31); Chloride 101 mmol/L (98-107); Glucose 197 mg/dL (80-115); Potassium 3.8 mmol/L (3.5-5.1); Sodium 138 mmol/L (136-145)
[2021-11-27 21:21] LABS: SARS-CoV-2 PCR by NAA DETECTED (NotDetected)
== END 2021-11-26 10:09 | disposition home or self-care (01) ==
LOC: LABBT 10:08
PROVIDERS: ATTEND Neurological Surgery
DX: U07.1 COVID-19 (principal); Z01.818 Encounter for other preprocedural examination; M54.16 Radiculopathy, lumbar region; M71.30 Other bursal cyst, unspecified site
CPT/HCPCS: 80048; 93005; U0003; U0005; 93010

== ENCOUNTER 2021-12-20 12:23 | Outpatient (CLI) | payer MEDICARE | END 2021-12-20 12:24 | disposition home or self-care (01) | LOC: BICCT 12:23 | PROVIDERS: ATTEND Neurological Surgery | DX: M51.16 Intervertebral disc disorders with radiculopathy, lumbar region (principal); M48.061 Spinal stenosis, lumbar region without neurogenic claudication | CPT/HCPCS: 72131 ==

== ENCOUNTER 2021-12-24 05:40 | Day surgery (SDC) | payer MEDICARE ==
[2021-11-25 13:53] VITALS: BMI 35.4
[2021-12-24] MEDS ORDERED: Bupivacaine PF 0.5% 30 ML VIAL ONE (06:14)
[2021-12-24] MEDS ORDERED: Thrombin 5000 UNITS/5 ML VIAL ONE (06:14)
[2021-12-24] MEDS ORDERED: EPINEPHrine 1 MG/ML AMP ONE (06:14)
[2021-12-24] MEDS ORDERED: Midazolam HCl 2 mg/2 ml Vial ONE (06:44)
[2021-12-24] MEDS ORDERED: Fentanyl 250 MCG/5 ML VIAL ONE (06:44)
[2021-12-24] MEDS ORDERED: Clindamycin/D5W 900 mg/50 ml Premix Bag ONE (06:49)
[2021-12-24] MEDS ORDERED: Levofloxacin 500 mg/D5W 100 ml Premix Bag ONE (06:49)
[2021-12-24] MEDS ORDERED: Glycopyrrolate 0.2 MG/ML 5 ML SYRINGE ONE (07:16)
[2021-12-24] MEDS ORDERED: PROPOFOL 200 MG/20 ML VIAL ONE (07:16)
[2021-12-24] MEDS ORDERED: Ketorolac Tromethamine 30 MG/ML VIAL ONE (07:16)
[2021-12-24] MEDS ORDERED: PHENYLEPHRINE-NS 100 MCG/ML 10 ML SYRINGE ONE ×2 (07:16→07:54)
[2021-12-24] MEDS ORDERED: ePHEDrine 50 MG/ML VIAL ONE (07:16)
[2021-12-24] MEDS ORDERED: Metoprolol Tartrate 5 MG/5 ML VIAL ONE (07:16)
[2021-12-24] MEDS ORDERED: Rocuronium Bromide 10 MG/ML (10ML VIAL) ONE (07:16)
[2021-12-24] MEDS ORDERED: Lidocaine 1% PF 5 ML VIAL ONE (07:16)
[2021-12-24] MEDS ORDERED: Dexamethasone 20 MG/5 ML VIAL ONE (07:16)
[2021-12-24] MEDS ORDERED: SUGAMMADEX SODIUM 200 MG/2 ML VIAL ONE (10:29)
[2021-12-24] MEDS ORDERED: Tamsulosin HCl 0.4 MG CAP ONE (10:50)
[2021-12-24] MEDS ORDERED: HYDROcodone/Acetaminophen 5/325 mg Tablet ONE (12:02)
== END 2021-12-24 15:18 | disposition home or self-care (01) ==
LOC: SDC 05:40
PROVIDERS: ATTEND Neurological Surgery
PROC: 01NB0ZZ Release Lumbar Nerve, Open Approach (ICD-10-PCS; principal; 2021-12-24)
PROC: 0SG0071 Fusion of Lumbar Vertebral Joint with Autologous Tissue Substitute, Posterior Approach, Posterior Column, Open Approach (ICD-10-PCS; 2021-12-24)
DX: M54.16 Radiculopathy, lumbar region (principal); M71.38 Other bursal cyst, other site; M48.061 Spinal stenosis, lumbar region without neurogenic claudication; I25.10 Atherosclerotic heart disease of native coronary artery without angina pectoris; Z79.4 Long term (current) use of insulin; Z79.82 Long term (current) use of aspirin; Z79.890 Hormone replacement therapy; Z79.899 Other long term (current) drug therapy; Z88.0 Allergy status to penicillin; Z88.1 Allergy status to other antibiotic agents; Z88.8 Allergy status to other drugs, medicaments and biological substances; Z95.1 Presence of aortocoronary bypass graft; Z90.5 Acquired absence of kidney
CPT/HCPCS: 20930; 20936; 22612; 22840; 76000; 82962; C1713 ×2; C1768; 36416; J0171; J1100; J1885; J1956; J2250; J2704; J3010; J3490; S0020

== ENCOUNTER 2022-05-18 17:30 | Outpatient (CLI) | payer MEDICARE | END 2022-05-18 17:31 | disposition home or self-care (01) | LOC: SLEEPLAB 17:30 | PROVIDERS: ATTEND Otolaryngology Otolaryngic Allergy | DX: G47.33 Obstructive sleep apnea (adult) (pediatric) (principal); R06.83 Snoring; G47.00 Insomnia, unspecified | CPT/HCPCS: 95800 ==

== ENCOUNTER 2022-11-15 14:50 | Outpatient (CLI) | payer MEDICARE | END 2022-11-15 14:51 | disposition home or self-care (01) | LOC: BICRAD 14:50 | PROVIDERS: ATTEND Internal Medicine | DX: M25.511 Pain in right shoulder (principal); M19.011 Primary osteoarthritis, right shoulder; Z98.890 Other specified postprocedural states; E78.5 Hyperlipidemia, unspecified; E11.9 Type 2 diabetes mellitus without complications; E03.9 Hypothyroidism, unspecified | CPT/HCPCS: 36415; 80053; 80061; 82043; 83036; 84439; 84443; 85025 ==

== ENCOUNTER 2024-01-17 05:49 | Day surgery (SDC) | payer MEDICARE ==
[2024-01-15 09:46] VITALS: BMI 34.7
[2024-01-17] MEDS ORDERED: EPINEPHrine 1 MG/ML VIAL ONE (06:27)
[2024-01-17] MEDS ORDERED: Bupivacaine 0.25% HCL 30 ML VIAL ONE (06:27)
[2024-01-17] MEDS ORDERED: Rocuronium Bromide 10 MG/ML (10ML VIAL) ONE (06:49)
[2024-01-17] MEDS ORDERED: Lidocaine 1% PF 5 ML VIAL ONE (06:49)
[2024-01-17] MEDS ORDERED: fentaNYL PF 100 MCG/2 ML SYRINGE ONE (06:49)
[2024-01-17] MEDS ORDERED: PROPOFOL 20 ML ONE (06:49)
[2024-01-17] MEDS ORDERED: Sodium Chloride 0.9% 100 ML ONE (07:15)
[2024-01-17] MEDS ORDERED: CEFAZOLIN 2 GM VIAL ONE (07:15)
[2024-01-17] MEDS ORDERED: Dexamethasone 20 MG/5 ML VIAL ONE ×2 (07:51→09:50)
[2024-01-17] MEDS ORDERED: Ondansetron PF 4 MG/2 ML Vial ONE ×2 (07:56→09:50)
[2024-01-17] MEDS ORDERED: ePHEDrine Sulfate 50 MG/10 ML VIAL ONE ×2 (08:19→09:59)
[2024-01-17] MEDS ORDERED: Lidocaine 2% PF 5 ML VIAL ONE (08:38)
[2024-01-17] MEDS ORDERED: Glycopyrrolate 0.2 MG/ML 5 ML SYRINGE ONE (08:49)
[2024-01-17] MEDS ORDERED: NEOSTIGMINE 3 MG/3 ML SYR 3 MG/3 ML SYRINGE ONE (08:49)
[2024-01-17] MEDS ORDERED: SUGAMMADEX SODIUM 200 MG/2 ML VIAL ONE (09:00)
[2024-01-17] MEDS ORDERED: Ketorolac Tromethamine 30 MG (1 mL) VIAL ONE (09:50)
[2024-01-17] MEDS ORDERED: HYDROcodone/Acetaminophen 5/325 mg Tablet ONE (11:56)
== END 2024-01-17 12:33 | disposition home or self-care (01) ==
LOC: SDC 05:49
PROVIDERS: ATTEND Surgery
PROC: 0WUF4JZ Supplement Abdominal Wall with Synthetic Substitute, Percutaneous Endoscopic Approach (ICD-10-PCS; principal; 2024-01-17)
DX: K43.2 Incisional hernia without obstruction or gangrene (principal); K45.8 Other specified abdominal hernia without obstruction or gangrene; E11.9 Type 2 diabetes mellitus without complications; I10 Essential (primary) hypertension; E03.9 Hypothyroidism, unspecified; E78.5 Hyperlipidemia, unspecified; I25.10 Atherosclerotic heart disease of native coronary artery without angina pectoris; Z88.0 Allergy status to penicillin; Z88.1 Allergy status to other antibiotic agents; Z88.8 Allergy status to other drugs, medicaments and biological substances; Z90.49 Acquired absence of other specified parts of digestive tract; Z90.89 Acquired absence of other organs; Z95.1 Presence of aortocoronary bypass graft
CPT/HCPCS: 49593; 82962; J0171; 36416; C1781; J0665; J1100; J1885; J2001; J2405; J2704; J3490

== ENCOUNTER 2024-02-06 16:00 | Outpatient (CLI) | payer MEDICARE | END 2024-02-06 16:01 | LOC: SLEEPLAB 16:00 | PROVIDERS: ATTEND Internal Medicine Critical Care Medicine | DX: G47.33 Obstructive sleep apnea (adult) (pediatric) (principal); R06.83 Snoring; G47.10 Hypersomnia, unspecified; E66.9 Obesity, unspecified; Z68.34 Body mass index [BMI] 34.0-34.9, adult | CPT/HCPCS: 95810; 95977 ==